=== PATIENT | female | born 1970 | race Caucasian/White ===

== ENCOUNTER 2016-09-03 07:39 | Outpatient (CLI) | payer OTHER ==
[2016-09-03] MEDS ORDERED: GADOBUTROL 10 MMOL/10 ML SYRINGE IVP ONE (08:52)
--- NOTE | 2016-09-03 14:11 | MRI Report ---
EXAM MRA BRAIN EXAM DATE: 09/03/2016 09:07 AM. CLINICAL HISTORY: MIGRAINE. COMPARISON: None. TECHNIQUE: Multiplanar, multisequence MRA sequences of the brain were performed. Other: None. Post-pr ocessing: Multiplanar 3D MIP reconstructions. IV Contrast: None. FINDINGS: RIGHT Internal Carotid (ICA): No aneurysm, stenosis or anomaly. Middle Cerebral (MCA): No aneurysm, stenosis or anomaly. Anterior Cerebral (SENDY): No aneurysm, stenosis or anomaly. Posterior Cerebral (CLERK SPECIALIST): No aneurysm, stenosis or anomaly. Posterior Communicating (P-COM): No aneurysm, stenosis or anomaly. Vertebral: Distal V4 segment of the right vertebral artery is hypoplastic, with the right vertebral a rtery hypoplastic, terminating in the right PICA. LEFT Internal Carotid (ICA): No aneurysm, stenosis or anomaly. Middle Cerebral (MCA): No aneurysm, stenosis or anomaly. Anterior Cerebral (SENDY): No aneurysm, stenosis or anomaly. Posterior Cerebral (CLERK SPECIALIST): P1 segment of the left CLERK SPECIALIST is hypoplastic, type left CLERK SPECIALIST. Posterior Communicating (P-COM): No aneurysm, stenosis or anomaly. Vertebral: No aneurysm, stenosis or anomaly in the visualized upper vertebral artery. MIDLINE Anterior Communicating (A-COM): No aneurysm, stenosis or anomaly. Other: None. IMPRESSION: Normal brain MRA. No stenoses or aneurysms. [facility] Referring Provider Line: [phone] SITE ID: [id number]
--- NOTE | 2016-09-03 15:58 | MRI Report ---
EXAM: MRI BRAIN WITHOUT AND WITH CONTRAST EXAM DATE: 09/03/2016 09:08 a.m. CLINICAL HISTORY: History of migraines, increasing in frequency. COMPARISON: None. TECHNIQUE: Multiplanar, multisequence T1-weighted and fluid-sensitive MR sequences of the brain were performed. Sequences optimized for routine evaluation. Other: None. Without and with IV Contrast: 9 m L IV Gadavist. FINDINGS: Diffusion weighted sequence shows no evidence for acute infarct. There is no mass, mass effect, midl ine shift or abnormal extraaxial fluid collection. Size and configuration of the ventricles are normal. Few nonspecific white matter T2 hyperintensities are seen in the subcortical frontal and parietal lob es, largest measuring 56 mm in the deep left frontal white matter. Brainstem and cerebellum appear n ormal. T2* gradient echo susceptibility imaging appears unremarkable. Major intracranial flow voids appear normal. There is a developmental venous anomaly in the left bas al ganglia. Limited evaluation of the arteries and dural venous sinus structures on postcontrast imag ing appears normal. There is no abnormal parenchymal, pachymeningeal or leptomeningeal enhancement. Globes, orbits, optic nerve sheath complex, optic chiasm, pituitary, cavernous sinus and Meckel's cav e appear normal. There is a mucous retention cyst in the left frontal sinus. There is mild mucosal thickening in the l eft frontal ethmoidal recess. Otherwise paranasal sinuses and mastoid air cells appear well aerated. Marrow signal and extracranial soft tissue appear normal. Craniocervical junction and visualized upper cervical cord appear unremarkable. IMPRESSION: 1. No acute infarct, intracranial hemorrhage, mass lesion or hydrocephalus. 2. Scattered nonspecific white matter T2 hyperintensities in bilateral frontal and parietal lobes, co mmonly seen in patients with migraine. Differential consideration includes early chronic microvascula r angiopathy. 3. 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 T here is no accompanying cavernous malformation. [facility] Referring Provider Line: [phone] SITE ID: [id number]
== END 2016-09-03 07:40 | disposition home or self-care (01) ==
LOC: DI 07:39
PROVIDERS: ATTEND Physician Assistant Medical
DX: G43.909 Migraine, unspecified, not intractable, without status migrainosus (principal)
CPT/HCPCS: 70544; 70553; A9585

== ENCOUNTER 2016-11-23 09:36 | Outpatient (CLI) | payer OTHER ==
[2016-11-23 13:10] LABS: BASOPHILS # (AUTO) 0.1 10^3/uL (0.0-0.1); BASOPHILS % (AUTO) 0.7 %; EOSINOPHILS # (AUTO) 0.2 10^3/uL (0.0-0.7); EOSINOPHILS % (AUTO) 2.2 %; HGB - HEMOGLOBIN 14.1 g/dL (12.0-16.0); LYMPHOCYTES # (AUTO) 1.9 10^3/uL (1.5-3.5); LYMPHOCYTES % (AUTO) 23.7 %; MEAN CORPUSCULAR HEMOGLOBIN 30.4 pg (27.0-31.0); MEAN CORPUSCULAR HGB CONC 33.5 g/dL (32.0-36.0); MEAN CORPUSCULAR VOLUME 90.8 fL (81.0-99.0); MEAN PLATELET VOLUME 7.6 fL (7.9-10.8); MONOCYTES # (AUTO) 0.6 10^3/uL (0.0-1.0); MONOCYTES % (AUTO) 6.9 %; NEUTROPHILS # (AUTO) 5.5 10^3/uL (1.5-6.6); NEUTROPHILS % (AUTO) 66.5 %; RED BLOOD COUNT 4.63 10^6/uL (4.20-5.40); RED CELL DISTRIBUTION WIDTH 14.5 % (12.0-15.0); UNCORRECTED WHITE BLOOD COUNT 8.2 x10^3/uL; WHITE BLOOD COUNT 8.2 x10^3/uL (4.8-10.8)
[2016-11-23 13:34] LABS: ALBUMIN/GLOBULIN RATIO 1.2 (1.0-2.2); BILIRUBIN,TOTAL 0.8 mg/dL (0.2-1.0); CALCIUM 9.7 mg/dL (8.5-10.3); CREATININE 0.8 mg/dL (0.4-1.0); TOTAL PROTEIN 7.8 g/dL (6.7-8.2)
[2016-11-23 14:19] LABS: H. PYLORI IGG ANTIBODY Negative (Negative); HPYLORI NEG QC Negative (Negative); HPYLORI POS QC POSITIVE (Positive)
== END 2016-11-23 09:37 | disposition home or self-care (01) ==
LOC: LAB.WCP 09:36
PROVIDERS: ATTEND Physician Assistant Medical
DX: R10.11 Right upper quadrant pain (principal)
CPT/HCPCS: 36415; 80053; 83690; 85025; 87339

== ENCOUNTER 2016-11-23 15:18 | Outpatient (CLI) | payer OTHER ==
--- NOTE | 2016-11-23 16:49 | Ultrasound Report ---
RIGHT UPPER QUADRANT ULTRASOUND: 11/23/2016 CLINICAL INDICATION: Right upper quadrant pain. TECHNIQUE: Real-time scanning was performed with airport representative static images obtained. The liver measures 19.6 cm. Hepatic echogenicity is diffusely increased, compatible with fatty infil tration. No focal parenchymal lesion or intrahepatic biliary dilatation is seen. The common bile du ct measures 4 mm. The gallbladder is normal. The right kidney measures 11.4 cm, and demonstrates no hydronephrosis. No free fluid is present. IMPRESSION: FATTY INFILTRATION OF THE LIVER. NO EVIDENCE OF CHOLELITHIASIS OR BILIARY DILATATION. JOB #: [id number] EXT JOB #:
== END 2016-11-23 15:19 | disposition home or self-care (01) ==
LOC: DI 15:18
PROVIDERS: ATTEND Physician Assistant Medical
DX: R10.11 Right upper quadrant pain (principal); K76.0 Fatty (change of) liver, not elsewhere classified
CPT/HCPCS: 36415; 76705; 80053; 83690; 85025; 87339

== ENCOUNTER 2016-11-30 08:47 | Outpatient (CLI) | payer OTHER ==
[2016-11-30] MEDS ORDERED: SINCALIDE 2.4 MCG in SODIUM CHLORIDE 0.9% 50 ML IV ONE (10:00)
--- NOTE | 2016-11-30 13:36 | Nuclear Medicine Report ---
EXAM: HEPATOBILIARY SCAN WITH CCK/KINEVAC ADMINISTRATION EXAM DATE: 11/30/2016 09:10 AM. CLINICAL HISTORY: Right upper quadrant pain. COMPARISON: Prior CT 11/12/2014. TECHNIQUE: Following the intravenous administration of 4.8 mCi of Tc99m Mebrofenin, a hepatobiliary s can was done centered on the liver and gallbladder in multiple sequential images and projections. Following the intravenous administration of 2.4 mcg of CCK/ Kinevac over the course of approximately 60 minutes, dynamic imaging was done and the gallbladder ejection fraction was calculated. FINDINGS: Normal extraction of tracer from the blood pool indicating normal hepatocellular function. The liver size and shape is grossly within normal limits. Appearance of tracer in the biliary tree as early as 10 minutes, within normal limits. Appearance of tracer in the gallbladder as early as 10 minutes, within normal limits, with good progr ession of filling throughout the remainder of the initial hour. Appearance of tracer in the small bowel as early as 20 minutes, within normal limits. With CCK administration, the gallbladder demonstrates an effective contraction. The gallbladder eject ion fraction is calculated to be 79%, well above the lower limit of normal of 38% for a 60-minute inj ection. IMPRESSION: 1. Patent cystic duct. 2. Patent common bile duct. 3. Negative for acute or chronic cholecystitis. 4. Gallbladder ejection fraction 79%. [facility] Referring Provider Line: [phone] SITE ID: [id number]
== END 2016-11-30 08:48 | disposition home or self-care (01) ==
LOC: DI 08:47
PROVIDERS: ATTEND Physician Assistant Medical
DX: R10.11 Right upper quadrant pain (principal)
CPT/HCPCS: 78227; A9537; J7040

== ENCOUNTER 2017-12-15 09:02 | Outpatient (CLI) | payer OTHER ==
--- NOTE | 2017-12-15 13:30 | Mammography Report ---
Reason: BREAST PAIN, LEFT,MASTODYNIA Procedure Date: 12/15/2017 Accession Number: [id number] / [id number] Procedure: [facility] - Diagnostic Dig Bilat CPT Code: FULL RESULT: EXAM: Diagnostic Dig Bilat DATE: 12/15/2017 9:58 AM CLINICAL HISTORY: 47 year-old nulliparous female with history of benign cyst aspiration presents for diagnostic mammogram due to palpable lumps in her left breast and arm. With tenderness. TECHNIQUE: Bilateral CC and MLO views were obtained with 2-D technique. COMPARISON: 01/06/2016, 10/06/2014, 09/09/2013, 09/07/2012. FINDINGS: The breasts demonstrate scattered fibroglandular densities bilaterally. There are no dominant masses, suspicious microcalcifications, or secondary signs of malignancy. The site marked with a BB which corresponds to the areas palpable to the patient have no mammographic finding. In comparison to the previous studies, there are no significant changes. IMPRESSION: Negative examination RECOMMENDATION: Recommend routine annual Screening mammography unless otherwise clinically indicated. BIRADS CATEGORY 1: Negative STANDARD QUALIFYING STATEMENTS: 1. This examination was not reviewed with the aid of Computer-Aided Detection (CAD). 2. A negative or benign imaging report should not delay biopsy if clinically suspicious findings are present. Consider surgical consultation if warrented. More than 5% of cancers are not identified by imaging. 3. Dense breasts may obscure an underlying neoplasm.
== END 2017-12-15 09:03 | disposition home or self-care (01) ==
LOC: DI 09:02
PROVIDERS: ATTEND Family Medicine
DX: N64.4 Mastodynia (principal)
CPT/HCPCS: 77066

== ENCOUNTER 2020-06-19 09:25 | Outpatient (CLI) | payer OTHER ==
[2020-06-19 12:26] LABS: ALBUMIN 4.3 g/dL (3.2-5.5); ALBUMIN/GLOBULIN RATIO 1.3 (1.0-2.2); ALKALINE PHOSPHATASE 56 IU/L (42-121); ALT ALANINE AMINOTRANSFERASE 27 IU/L (10-60); AST ASPARTATE AMINOTRANSFERASE 22 IU/L (10-42); BILIRUBIN,TOTAL 0.8 mg/dL (0.2-1.0); BUN - BLOOD UREA NITROGEN 14 mg/dL (6-20); CALCIUM 9.4 mg/dL (8.5-10.3); CARBON DIOXIDE - CO2 21 mmol/L (21-32); CHLORIDE 108 mmol/L (101-111); CHOLESTEROL 254 mg/dL; CREATININE 0.8 mg/dL (0.4-1.0); GFR - MDRD 76 (>89); GLUCOSE 95 mg/dL (70-100); HDL CHOLESTEROL 51 mg/dL; LDL CHOLESTEROL,CALCULATED 177 mg/dL; LDL/HDL RATIO 3.5 (<4.4); POTASSIUM 3.8 mmol/L (3.5-5.0); SODIUM 135 mmol/L (135-145); TOTAL PROTEIN 7.6 g/dL (6.7-8.2); TRIGLYCERIDES 132 mg/dL; VLDL CHOLESTEROL 26 mg/dL
[2020-06-19 12:27] LABS: BASOPHILS # (AUTO) 0.1 10^3/uL (0.0-0.1); BASOPHILS % (AUTO) 0.7 %; EOSINOPHILS # (AUTO) 0.3 10^3/uL (0.0-0.7); EOSINOPHILS % (AUTO) 4.2 %; HCT - HEMATOCRIT 42.7 % (37.0-47.0); HGB - HEMOGLOBIN 14.6 g/dL (12.0-16.0); LYMPHOCYTES # (AUTO) 2.2 10^3/uL (1.5-3.5); LYMPHOCYTES % (AUTO) 31.7 %; MEAN CORPUSCULAR HEMOGLOBIN 31.7 pg (27.0-31.0); MEAN CORPUSCULAR HGB CONC 34.2 g/dL (32.0-36.0); MEAN CORPUSCULAR VOLUME 92.6 fL (81.0-99.0); MEAN PLATELET VOLUME 9.6 fL (7.9-10.8); MONOCYTES # (AUTO) 0.5 10^3/uL (0.0-1.0); MONOCYTES % (AUTO) 6.7 %; NEUTROPHILS # (AUTO) 3.9 10^3/uL (1.5-6.6); NEUTROPHILS % (AUTO) 56.4 %; PLT - PLATELET COUNT 345 10^3/uL (130-450); RED BLOOD COUNT 4.61 10^6/uL (4.20-5.40); RED CELL DISTRIBUTION WIDTH 13.8 % (12.0-15.0); WHITE BLOOD COUNT 6.9 x10^3/uL (4.8-10.8)
[2020-06-19 12:37] LABS: THYROID STIMULATING HORMONE 1.17 uIU/mL (0.34-5.60)
== END 2020-06-19 23:59 | disposition home or self-care (01) ==
LOC: LAB.WCP 09:25
PROVIDERS: ATTEND Nurse Practitioner Family
DX: Z00.00 Encounter for general adult medical examination without abnormal findings (principal); E78.5 Hyperlipidemia, unspecified; D50.9 Iron deficiency anemia, unspecified
CPT/HCPCS: 36415; 80053; 80061; 83721; 84443; 85025

== ENCOUNTER 2020-06-30 14:45 | Outpatient (CLI) | payer OTHER ==
--- NOTE | 2020-06-30 15:47 | XRAY Report ---
PROCEDURE: Shoulder 3 View RT INDICATIONS: R SHOULDER IMPINGEMENT SYNDROME TECHNIQUE: 3 views of the shoulder were acquired. COMPARISON: Right shoulder radiographs 06/01/2015 FINDINGS: Bones: No acute fractures or dislocations. No suspicious bony lesions. Visualized ribs appear inta ct. Mild degenerative changes are seen at the acromioclavicular joint. Soft tissues: No suspicious soft tissue calcifications. IMPRESSION: No acute osseous abnormality. Mild acromioclavicular joint osteoarthrosis. If there is clinical concern or persistent symptoms, additional imaging such as repeat radiographs or advanced imaging (e.g. CT, MRI) may be helpful for further evaluation. Reviewed by: Robert Merlos MD on 06/30/2020 3:45 PM PDT Approved by: Robert Merlos MD on 06/30/2020 3:45 PM PDT Station ID: [id number]
== END 2020-06-30 14:46 | disposition home or self-care (01) ==
LOC: DI.N 14:45
PROVIDERS: ATTEND Physician Assistant Medical
DX: M19.011 Primary osteoarthritis, right shoulder (principal)

== ENCOUNTER 2020-10-09 08:07 | Outpatient (CLI) | payer OTHER ==
--- NOTE | 2020-10-12 13:19 | Mammography Report ---
BILATERAL DIGITAL SCREENING MAMMOGRAM 3D/2D: 10/09/2020 CLINICAL: Routine screening. Comparison is made to exams dated: 12/15/2017 mammogram, 01/06/2016 mammogram, 10/06/2014 mammogram, mammogram, 09/07/2012 mammogram, and 07/08/2010 mammogram - [facility]. The re are scattered fibroglandular elements in both breasts. No significant masses, calcifications, or other findings are seen in either breast. There has been no significant interval change. IMPRESSION: NEGATIVE There is no mammographic evidence of malignancy. A 1 year screening mammogram is recommended. Additionally, patient has an elevated lifetime risk for breast cancer of greater than 20%. Recommend consideration for screening breast MRI as an adjunct to screening mammography. This exam was interpreted at Station ID: [id number]. NOTE: For mammograms, a report in lay terms will be sent to the patient. Approximately 15% of breast malignancies will not be visualized mammographically. In the management of a palpable breast mass, a negative mammogram must not discourage biopsy of a clinically suspicious lesion. Electronically Signed By: Syed Bains M.D. aty/:10/09/2020 10:07:18 ACR BI-RADS Category 1: Negative 3341F PARENCHYMAL PATTERN: (A) - The breast(s) demonstrate(s) scattered fibroglandular densities. BI-RADS CATEGORY: (1) - 1 RECOMMENDATION: (ANNUAL) - Recommend routine annual screening mammography. [id number] 1 year screening LATERALITY: (B)
== END 2020-10-09 08:08 | disposition home or self-care (01) ==
LOC: DI 08:07
DX: Z12.31 Encounter for screening mammogram for malignant neoplasm of breast (principal)

== ENCOUNTER 2021-06-14 14:34 | Outpatient (CLI) | payer OTHER ==
--- NOTE | 2021-06-14 16:56 | XRAY Report ---
PROCEDURE: Foot 3 View RT INDICATIONS: FOOT PAIN TECHNIQUE: 3 views of the foot were acquired. COMPARISON: None FINDINGS: Bones: No fractures or dislocations. No suspicious bony lesions. Tailor bunion. Soft tissues: No tibiotalar joint effusion. Achilles tendon appears normal. IMPRESSION: Tailor bunion. No evidence of acute bony abnormality of the right foot. Reviewed by: Jersey Valladares MD on 06/14/2021 4:55 PM PDT Approved by: Jersey Valladares MD on 06/14/2021 4:55 PM PDT Station ID: [id number]
== END 2021-06-14 23:59 | disposition home or self-care (01) ==
LOC: DI.WOS 14:34
PROVIDERS: ATTEND Physician Assistant
DX: D36.13 Benign neoplasm of peripheral nerves and autonomic nervous system of lower limb, including hip (principal); M21.621 Bunionette of right foot

== ENCOUNTER 2021-08-05 06:56 | Outpatient (CLI) | payer OTHER ==
[2021-08-05] MEDS ORDERED: GADOBUTROL 10 MMOL/10 ML VIAL ONE (07:41)
[2021-08-05] MEDS ORDERED: GADOBUTROL 10 MMOL/10 ML VIAL IVP ONE (08:02)
--- NOTE | 2021-08-05 09:49 | MRI Report ---
PROCEDURE: Ankle RT W/WO INDICATIONS: GIANT CELL TUMOR OF TENDON SHEATH CONTRAST: IV CONTRAST: Gadavist ml: 8.8 TECHNIQUE: Noncontrast sagittal T1 spin echo and T2 fast spin echo with fat saturation, axial proton density fas t spin echo and T2 fast spin echo with fat saturation, axial T1 spin echo with fat saturation, hobbs l T1 spin echo and T2 fast spin echo with fat saturation through the ankle/hindfoot. Post-contrast a xial, coronal, and sagittal T1 spin echo with fat saturation through the ankle/hindfoot. COMPARISON: Reference is made to the radiograph dated June 14, 2021. Findings: Some images are degraded by motion artifact. Bones: No evidence of fracture, infiltration, ischemia or contusion. Muscles: No evidence of muscular atrophy or edema. Anterior tibiofibular ligament: Intact. Posterior tibiofibular ligament: Intact. Calcaneofibular ligament: Intact. Talar dome: No significant abnormality. Anterior talofibular ligament: Intact. Posterior talofibular ligament: Intact. Deltoid ligament: Intact. Peroneal tendons: T2 hyperintense signal surrounds the peroneal brevis tendon near its attachment sit e, concerning for tenosynovitis. T2 hyperintense signal with contrast enhancing soft tissue is seen surrounding the peroneal longus, c oncerning for giant cell tumor. Tibialis posterior: No evidence of tear or tenosynovitis. Flexor digitorum: No evidence of tear or tenosynovitis. Flexor hallucis longus: No evidence of tear or tenosynovitis. Sinus Tarsi: No mass or fibrosis. Achilles tendon: Intact. Joint effusion: Small tibiotalar joint effusion. Plantar fascia: No evidence of tear or inflammation. IMPRESSION: 1. Tenosynovitis of the peroneal brevis tendon. 2. Mass of the peroneal longus tendon as detailed above, concerning for giant cell tumor. Differentia l considerations include fibroma of the tendon sheath. Reviewed by: Ron Max MD on 08/05/2021 9:48 AM PDT Approved by: Ron Max MD on 08/05/2021 9:48 AM PDT Station ID: [id number]
== END 2021-08-05 06:57 | disposition home or self-care (01) ==
LOC: DI 06:56
PROVIDERS: ATTEND Orthopaedic Surgery
DX: D21.9 Benign neoplasm of connective and other soft tissue, unspecified (principal); M65.9 Synovitis and tenosynovitis, unspecified

== ENCOUNTER 2022-09-26 09:42 | Outpatient (CLI) | payer OTHER ==
[2022-09-26 12:27] LABS: BASOPHILS # (AUTO) 0.1 10^3/uL (0.0-0.1); BASOPHILS % (AUTO) 1.2 %; EOSINOPHILS # (AUTO) 0.3 10^3/uL (0.0-0.7); EOSINOPHILS % (AUTO) 4.5 %; HCT - HEMATOCRIT 41.6 % (37.0-47.0); HGB - HEMOGLOBIN 13.5 g/dL (12.0-16.0); LYMPHOCYTES % (AUTO) 33.2 %; MEAN CORPUSCULAR HEMOGLOBIN 29.7 pg (27.0-31.0); MEAN CORPUSCULAR HGB CONC 32.5 g/dL (32.0-36.0); MEAN CORPUSCULAR VOLUME 91.6 fL (81.0-99.0); MEAN PLATELET VOLUME 9.3 fL (7.9-10.8); MONOCYTES # (AUTO) 0.5 10^3/uL (0.0-1.0); MONOCYTES % (AUTO) 7.6 %; NEUTROPHILS # (AUTO) 3.2 10^3/uL (1.5-6.6); NEUTROPHILS % (AUTO) 53.2 %; PLT - PLATELET COUNT 364 10^3/uL (130-450); RED BLOOD COUNT 4.54 10^6/uL (4.20-5.40); RED CELL DISTRIBUTION WIDTH 14.3 % (12.0-15.0); WHITE BLOOD COUNT 5.9 x10^3/uL (4.8-10.8)
[2022-09-26 12:51] LABS: ALBUMIN 4.1 g/dL (3.2-5.5); ALBUMIN/GLOBULIN RATIO 1.2 (1.0-2.2); ALKALINE PHOSPHATASE 64 IU/L (42-121); ALT ALANINE AMINOTRANSFERASE 28 IU/L (10-60); AST ASPARTATE AMINOTRANSFERASE 21 IU/L (10-42); BILIRUBIN,TOTAL 0.6 mg/dL (0.2-1.0); BUN - BLOOD UREA NITROGEN 14 mg/dL (6-20); CALCIUM 9.6 mg/dL (8.5-10.3); CARBON DIOXIDE - CO2 23 mmol/L (21-32); CHLORIDE 112 mmol/L (101-111); CHOL/HDL RATIO 6.1 (<4.4); CHOLESTEROL 291 mg/dL; GFR - MDRD 58 (>89); GLUCOSE 102 mg/dL (70-100); HDL CHOLESTEROL 48 mg/dL; LDL CHOLESTEROL,CALCULATED 183 mg/dL; LDL/HDL RATIO 3.8 (<4.4); POTASSIUM 4.1 mmol/L (3.5-5.0); SODIUM 142 mmol/L (135-145); TOTAL PROTEIN 7.4 g/dL (6.7-8.2); TRIGLYCERIDES 299 mg/dL; VLDL CHOLESTEROL 60 mg/dL
[2022-09-26 12:56] LABS: THYROID STIMULATING HORMONE 1.83 uIU/mL (0.34-5.60)
[2022-09-26 13:02] LABS: FERRITIN 61.4 ng/mL (11.0-306.8)
== END 2022-09-26 09:43 | disposition home or self-care (01) ==
LOC: LAB.N 09:42
PROVIDERS: ATTEND Physician Assistant Medical
DX: Z00.00 Encounter for general adult medical examination without abnormal findings (principal); R53.83 Other fatigue; D50.9 Iron deficiency anemia, unspecified
CPT/HCPCS: 36415; 80053; 80061; 82306; 82607; 82728; 83721; 84443; 85025

== ENCOUNTER 2022-10-31 14:12 | Outpatient (CLI) | payer OTHER ==
[2022-10-31 21:29] LABS: RHEUMATOID FACTOR NEGATIVE (Negative)
[2022-11-02 18:08] LABS: ANTI-DNA (DS) AB QN 1 IU/mL (0-9)
[2022-11-02 21:07] LABS: ANTINUCLEAR ANTIBODIES IFA Negative (.)
[2022-11-02 22:07] LABS: CYCLIC CITRULLINATED PEP IGG/A 3 units (0-19)
== END 2022-10-31 14:13 | disposition home or self-care (01) ==
LOC: LAB.N 14:12
PROVIDERS: ATTEND Physician Assistant Medical
DX: M06.9 Rheumatoid arthritis, unspecified (principal)
CPT/HCPCS: 36415; 85651; 86038; 86140; 86200; 86225; 86430